=== PATIENT | male | born 1965 | race Hispanic/Latino ===

== ENCOUNTER → 2025-04-02 | Outpatient (REF) | payer MEDICARE ==
[~2025-04-02] MED LIST: AMIODARONE HCL200 MG PO; ASPIRIN81 MG PO; ATORVASTATIN CA20 MG PO; CARVEDILOL3.125 MG PO; FARXIGA10 MG PO; FUROSEMIDE40 MG PO; GLIPIZIDE5 MG PO; LEVOTHYROXINE112 MCG PO; LISINOPRIL10 MG PO; METFORMIN HCL500 MG PO; TRULICITY4.5 MG/0.5 SC; VITAMIN C1000 MG PO; [UNRECOGNIZED DRUG - OTHER] PO
== END ==
LOC: RAD 15:03 → EDSTATUS 04-06 15:00
PROVIDERS: ATTEND Internal Medicine Gastroenterology
DX: Z01.818 Encounter for other preprocedural examination (principal); Z12.11 Encounter for screening for malignant neoplasm of colon
CPT/HCPCS: 93005

== ENCOUNTER → 2025-06-29 | Day surgery (SDC) | payer MEDICARE ==
[~2025-06-29] MED LIST changes: +GLYCOPYRROLATE INJ 0.2 MG/ML VIAL ONE; +LACTATED RINGER'S 1,000 ML ONE; +PROPOFOL IV EMULSION 50 ML IV ONE
[2025-06-29 10:30] VITALS: TEMP 98.9
[2025-06-29 10:45] VITALS: BP 120/93; PULSE 78; RESP 16; O2SAT 97
== END | disposition home or self-care (01) ==
LOC: OR 06:36
PROVIDERS: ATTEND Internal Medicine Gastroenterology
DX: Z12.11 Encounter for screening for malignant neoplasm of colon (principal); D12.3 Benign neoplasm of transverse colon; D12.2 Benign neoplasm of ascending colon; D12.4 Benign neoplasm of descending colon; K64.8 Other hemorrhoids; I10 Essential (primary) hypertension; I49.9 Cardiac arrhythmia, unspecified; E78.5 Hyperlipidemia, unspecified; E11.9 Type 2 diabetes mellitus without complications; E03.9 Hypothyroidism, unspecified; Z79.84 Long term (current) use of oral hypoglycemic drugs; G47.33 Obstructive sleep apnea (adult) (pediatric); E66.813 Obesity, class 3; Z79.82 Long term (current) use of aspirin; Z79.85 Long-term (current) use of injectable non-insulin antidiabetic drugs; Z79.890 Hormone replacement therapy; Z68.42 Body mass index [BMI] 45.0-49.9, adult
CPT/HCPCS: 36415; 45385; 82948